=== PATIENT | male | born 1955 | race Caucasian/White ===

== ENCOUNTER 2020-11-01 12:51 | Emergency (ER) | payer OTHER ==
[~2020-11-01] VITALS: Ht 180.3 cm; Wt 90.9 kg
[2020-11-01] MEDS ORDERED: HYDROcodone/acetaminophen 10/325mg tab PO ONE (13:30)
[2020-11-01] MEDS ORDERED: HYDR-3965 PO (15:16)
[2020-11-01 15:41] VITALS: BP 144/78
== END 2020-11-01 15:44 | disposition home or self-care (01) ==
LOC: ER 12:52
DX: S50.311A Abrasion of right elbow, initial encounter (principal); M25.551 Pain in right hip; W19.XXXA Unspecified fall, initial encounter; Y93.89 Activity, other specified; Y92.89 Other specified places as the place of occurrence of the external cause; Y99.8 Other external cause status
CPT/HCPCS: 73502; 99283